=== PATIENT | female | born 1960 | race African-American/Black ===

== ENCOUNTER 2017-02-18 14:27 | Emergency (ER) | payer BC ==
[~2017-02-18] VITALS: Ht 157.5 cm; Wt 61.4 kg
[~2017-02-18 14:27] MED LIST: FLEXERIL 1010 MG/TAB PO; NAPROSYN500 MG PO; NEXIUM 40MG40 MG PO; NO HOME MEDICATIONS; NORCO 325 MG-51 TAB PO; PREDNISONE20 MG PO; ULTRAM 50MG TAB50 MG PO; ZITHROMAX 250M250 MG PO
[2017-02-18 14:33] VITALS: BP 137/87; TEMP 98.2
[2017-02-18] MEDS ORDERED: PREDNISONE20 MG PO (16:48)
[2017-02-18] MEDS ORDERED: ZITHROMAX Z PA250 MG PO (16:48)
[2017-02-18 17:00] VITALS: PULSE 92
== END 2017-02-18 17:01 | disposition home or self-care (01) ==
LOC: COL.ER 14:27
DX: J20.9 Acute bronchitis, unspecified (principal); F17.210 Nicotine dependence, cigarettes, uncomplicated; Z90.710 Acquired absence of both cervix and uterus; Z86.73 Personal history of transient ischemic attack (TIA), and cerebral infarction without residual deficits; Z90.49 Acquired absence of other specified parts of digestive tract; Z98.51 Tubal ligation status
CPT/HCPCS: J7512

== ENCOUNTER 2017-08-22 11:37 | Emergency (ER) | payer BC ==
[~2017-08-22] VITALS: Ht 157.5 cm; Wt 59.1 kg
[~2017-08-22 11:37] MED LIST changes: +ZITHROMAX Z PA250 MG PO
[2017-08-22 11:40] VITALS: TEMP 98.7
[2017-08-22 12:39] LABS: COLLECTION METHOD CLEAN CATCH
[2017-08-22 12:45] LABS: BASO % 0.4 % (0.0-2.0); EOS # 0.1 (0.0-0.7); EOS % 1.4 % (0-4.0); GRAN # 4.2 (1.4-6.5); GRAN % 57.9 % (42.2-75.2); HEMATOCRIT 41.5 % (37.0-47.0); LYMPH # 2.4 (1.2-3.4); MEAN CELL VOLUME 81 fl (80.0-100.0); MEAN CORPUSCULAR HEMOGLOBIN 27 pg (27.0-31.0); MEAN CORPUSCULAR HGB CONC 34 g/dl (33.0-37.0); MONO # 0.5 (0.1-0.6); PLATELET COUNT 269 K/mm3 (130-400); RED BLOOD COUNT 5.13 M/mm3 (4.10-5.30)
[2017-08-22 12:54] LABS: BUDDING YEAST Present /hpf; MUCOUS Present /lpf; PH 5 (5-8); URINE APPEARANCE Hazy; URINE BACTERIA Rare /hpf; URINE BILIRUBIN Negative (NEGATIVE); URINE BLOOD 1+ (NEGATIVE); URINE COLOR Yellow; URINE GLUCOSE Negative (NEGATIVE); URINE KETONE Negative (NEGATIVE); URINE LEUKOCYTE ESTERASE 1+ (NEGATIVE); URINE NITRATE Positive (NEGATIVE); URINE PROTEIN(semi-quant) Negative (NEGATIVE); URINE RBC 0-2 /hpf; URINE UROBILINOGEN Negative (NEGATIVE)
[2017-08-22 12:54] LABS: ALBUMIN 4.3 gm/dL (3.5-5.0); BILIRUBIN,TOTAL 0.4 mg/dL (0.0-1.0); CREATININE, serum 0.84 mg/dL (0.52-1.25); POTASSIUM 3.8 mmol/L (3.4-5.0); TOTAL PROTEIN 7.5 gm/dL (6.4-8.2)
[2017-08-22] MEDS ORDERED: MACROBID 1100 MG/CAP PO (13:46)
[2017-08-22] MEDS ORDERED: NORCO 325 MG-51 TAB PO (13:46)
[2017-08-22 14:02] VITALS: BP 140/75; PULSE 64
== END 2017-08-22 14:01 | disposition home or self-care (01) ==
LOC: COL.ER 11:37
PROVIDERS: Family Medicine
DX: S30.1XXA Contusion of abdominal wall, initial encounter (principal); N30.90 Cystitis, unspecified without hematuria; W23.1XXA Caught, crushed, jammed, or pinched between stationary objects, initial encounter
CPT/HCPCS: Q9967

== ENCOUNTER 2018-01-10 14:05 | Emergency (ER) | payer BC ==
[~2018-01-10] VITALS: Ht 157.5 cm; Wt 59.1 kg
[~2018-01-10 14:05] MED LIST changes: +MACROBID 1100 MG/CAP PO
[2018-01-10 14:08] VITALS: TEMP 98.3
[2018-01-10 14:54] LABS: COLLECTION METHOD CLEAN CATCH
[2018-01-10 15:06] LABS: BASO % 0.2 % (0.0-2.0); EOS # 0.1 (0.0-0.7); EOS % 1.1 % (0-4.0); GRAN % 54.7 % (42.2-75.2); HEMOGLOBIN 12.5 g/dl (12.5-16.0); LYMPH # 2.1 (1.2-3.4); LYMPH % 37.6 % (20.0-51.0); MEAN CELL VOLUME 78 fl (80.0-100.0); MEAN CORPUSCULAR HEMOGLOBIN 27 pg (27.0-31.0); MEAN CORPUSCULAR HGB CONC 35 g/dl (33.0-37.0); MEAN PLATELET VOLUME 10.8 fl (7.4-10.4); MONO # 0.3 (0.1-0.6); PLATELET COUNT 221 K/mm3 (130-400); RED BLOOD COUNT 4.61 M/mm3 (4.10-5.30); REDCELL DISTRIBUTION WIDTH-CV 15.1 % (11.5-14.5)
[2018-01-10 15:13] LABS: MUCOUS Present /lpf; PH 5 (5-8); SQUAMOUS EPITHELIAL 0-2 /hpf; URINE APPEARANCE Hazy; URINE BACTERIA Rare /hpf; URINE BILIRUBIN Negative (NEGATIVE); URINE BLOOD 2+ (NEGATIVE); URINE COLOR Yellow; URINE GLUCOSE Negative (NEGATIVE); URINE KETONE Negative (NEGATIVE); URINE LEUKOCYTE ESTERASE 2+ (NEGATIVE); URINE NITRATE Positive (NEGATIVE); URINE PROTEIN(semi-quant) Negative (NEGATIVE); URINE RBC 0-2 /hpf; URINE UROBILINOGEN Negative (NEGATIVE)
[2018-01-10 15:22] LABS: ALBUMIN 3.7 gm/dL (3.5-5.0); BILIRUBIN,TOTAL 0.3 mg/dL (0.0-1.0); C-REACTIVE PROTEIN 0.6 mg/dL (0.0-0.9); CALCIUM 9.7 mg/dL (8.4-10.2); CREATININE, serum 0.67 mg/dL (0.52-1.25); POTASSIUM 3.6 mmol/L (3.4-5.0); TOTAL PROTEIN 6.8 gm/dL (6.4-8.2)
[2018-01-10] MEDS ORDERED: CEFTIN 250250 MG/TAB PO (16:16)
[2018-01-10 16:39] VITALS: BP 127/73; PULSE 62
== END 2018-01-10 16:40 | disposition home or self-care (01) ==
LOC: COL.ER 14:05
PROVIDERS: Physician Assistant
DX: N39.0 Urinary tract infection, site not specified (principal); Z90.710 Acquired absence of both cervix and uterus; Z98.51 Tubal ligation status; Z90.89 Acquired absence of other organs; F17.210 Nicotine dependence, cigarettes, uncomplicated; F12.90 Cannabis use, unspecified, uncomplicated

== ENCOUNTER 2019-03-06 10:37 | Emergency (ER) | payer BC, OTHER ==
[~2019-03-06] VITALS: Ht 157.5 cm; Wt 56.8 kg
[~2019-03-06 10:37] MED LIST changes: +CEFTIN 250250 MG/TAB PO
[2019-03-06 10:41] VITALS: BP 136/76; TEMP 98.7
[2019-03-06 11:32] LABS: BASO % 0.3 % (0.0-2.0); EOS % 0.7 % (0-4.0); GRAN # 3.9 (1.4-6.5); HEMATOCRIT 39.7 % (37.0-47.0); HEMOGLOBIN 13.7 g/dl (12.5-16.0); LYMPH # 1.8 (1.2-3.4); LYMPH % 29.8 % (20.0-51.0); MEAN CELL VOLUME 80 fl (80.0-100.0); MEAN CORPUSCULAR HEMOGLOBIN 28 pg (27.0-31.0); MEAN CORPUSCULAR HGB CONC 35 g/dl (33.0-37.0); MEAN PLATELET VOLUME 10.8 fl (7.4-10.4); MONO # 0.3 (0.1-0.6); MONO % 4.9 % (1.7-9.3); PLATELET COUNT 210 K/mm3 (130-400); RED BLOOD COUNT 4.98 M/mm3 (4.10-5.30); REDCELL DISTRIBUTION WIDTH-CV 14.4 % (11.5-14.5)
[2019-03-06 11:47] LABS: ERYTHROCYTE SEDIMENTATION RATE 1 mm/hr (0-30)
[2019-03-06] MEDS ORDERED: DOXYCYCLINE 10100 MG PO (12:02)
[2019-03-06 12:12] VITALS: PULSE 76
[2019-03-08] MEDS ORDERED: NORCO 325 MG-51 TAB PO (15:31)
== END 2019-03-06 12:13 | disposition home or self-care (01) ==
LOC: COL.ER 10:37
PROVIDERS: Physician Assistant
DX: M79.89 Other specified soft tissue disorders (principal); F17.210 Nicotine dependence, cigarettes, uncomplicated; Z90.710 Acquired absence of both cervix and uterus; Z90.89 Acquired absence of other organs

== ENCOUNTER 2019-06-22 09:00 | Outpatient (RCR) | payer BC ==
[~2019-06-22 09:00] MED LIST changes: +DOXYCYCLINE 10100 MG PO
== END 2019-07-07 10:11 | disposition home or self-care (01) ==
LOC: WSOT 09:00
DX: Z98.890 Other specified postprocedural states (principal)

== ENCOUNTER 2020-04-04 00:02 | Emergency (ER) | payer BC ==
[~2020-04-04] VITALS: Ht 157.5 cm; Wt 54.5 kg
[2020-04-04 00:06] VITALS: BP 142/79; TEMP 98.1
[2020-04-04 02:45] VITALS: PULSE 80
== END 2020-04-04 02:45 | disposition home or self-care (01) ==
LOC: COL.ER 00:02
DX: G43.909 Migraine, unspecified, not intractable, without status migrainosus (principal); F17.210 Nicotine dependence, cigarettes, uncomplicated; Z90.49 Acquired absence of other specified parts of digestive tract; Z90.710 Acquired absence of both cervix and uterus
CPT/HCPCS: J1200; J1885; J2765; J7030